=== PATIENT | male | born 1955 | race Caucasian/White ===

== ENCOUNTER 2021-05-27 07:01 | Emergency (ER) | payer BC, OTHER ==
[~2021-05-27] VITALS: Ht 187 cm; Wt 105.0 kg
[2021-05-27] MEDS ORDERED: ASPIRIN 81 MG CHEW (CHILDREN'S ASA) PO ONE (07:30)
[2021-05-27] MEDS ORDERED: DIAZEPAM 5 MG (VALIUM) TABLET PO ONE (07:30)
[2021-05-27] MEDS ORDERED: KETOROLAC 30 MG/ML VIAL IVP ONE (07:30)
[2021-05-27 07:40] LABS: HEMATOCRIT 47 % (40-54); HEMOGLOBIN 16.4 g/dL (13.3-17.7); LYMPHOCYTES % (AUTO) 31 % (12-44); MEAN CORPUSCULAR HEMOGLOBIN 32 pg (25-34); MEAN CORPUSCULAR HGB CONC 35 g/dL (32-36); MEAN CORPUSCULAR VOLUME 92 fL (80-99); MEAN PLATELET VOLUME 9.7 fL (9.0-12.2); MONOCYTES % (AUTO) 10 % (0-12); NEUTROPHILS % (AUTO) 55 % (42-75); PLATELET COUNT 230 10^3/uL (130-400); WHITE BLOOD COUNT 6.6 10^3/uL (4.3-11.0)
[2021-05-27 07:41] LABS: BASOPHILS % (AUTO) 1 % (0-10); EOSINOPHILS # (AUTO) 0.3 10^3/uL (0.0-0.3); EOSINOPHILS % (AUTO) 4 % (0-10); MONOCYTES # (AUTO) 0.6 X 10^3 (0.0-1.0); NEUTROPHILS # (AUTO) 3.6 X 10^3 (1.8-7.8)
[2021-05-27 08:05] LABS: ALANINE AMINOTRANSFERASE 62 U/L (0-55); ALKALINE PHOSPHATASE 96 U/L (40-136); BILIRUBIN,TOTAL 0.5 MG/DL (0.1-1.0); BUN/CREATININE RATIO 19; CALCIUM 9.4 MG/DL (8.5-10.1); CARBON DIOXIDE 28 MMOL/L (21-32); CHLORIDE 103 MMOL/L (98-107); CREATININE SERUM 1.06 MG/DL (0.60-1.30); GFR ESTIMATED 71; GLUCOSE 160 MG/DL (70-105); SODIUM 142 MMOL/L (135-145); TOTAL PROTEIN 9.6 GM/DL (6.4-8.2)
[2021-05-27 08:06] VITALS: BP 136/84
[2021-05-27 08:06] LABS: ALBUMIN 4.4 GM/DL (3.2-4.5)
--- NOTE | 2021-05-27 08:19 | Diagnostic Imaging Report ---
Indication: Back pain COMPARISON: CT of the spine from same date TECHNIQUE: Single frontal radiograph of the chest dated 05/27/2021 FINDINGS: Prominence of the right aspect of the superior aspect of the heart border. Otherwise, the cardiac silhouette is within normal limits in size. No significant pulmonary vascular congestion. A 1.1 cm nodular density seen overlying the left lung base. The lungs otherwise appear clear. No pleural effusion. No pneumothorax. No acute osseous abnormality. IMPRESSION: 1.1 cm nodular density overlying the left lung base. It is favored this simply relates to a nipple shadow, though pulmonary nodule is not excluded. Recommend repeat frontal and lateral radiograph the chest with nipple markers in place. Alternatively, this could be further evaluated with a CT of the chest to also further evaluate the suspected ascending thoracic aortic aneurysm. Prominence of the superior aspect of the right heart border. This is favored related to aneurysm versus tortuosity of the ascending thoracic aorta. This can be further evaluated with chest CT. Dictated by: Dictated on workstation # [id number]
--- NOTE | 2021-05-27 08:22 | Diagnostic Imaging Report ---
EXAMINATION: CT cervical and thoracic spine without contrast. TECHNIQUE: Multiple contiguous axial images were obtained through the cervical and thoracic spine without the use of intravenous contrast. Sagittal and coronal reformations through the cervical spine were then performed. All CT scans use one or more of the following dose optimizing techniques: automated exposure control, MA and/or KvP adjustment based on patient size and exam type or iterative reconstruction. HISTORY: L paraspinal pain shooting down L arm COMPARISON: None available. FINDINGS: Vertebral body height and alignment are preserved. No acute fracture, dislocation, or destructive osseous process. Mild multilevel facet hypertrophy without perched facets. No greater than mild central canal stenosis at any level. Moderate to severe foraminal stenosis right C5-C6. Additional levels of mild to moderate foraminal stenosis. The paraspinous soft tissues are normal. The visualized thyroid gland is normal. The visualized lungs are normal. IMPRESSION: 1. Degenerative changes of the cervical and thoracic spine without acute osseous abnormality. 2. Up to moderate to severe foraminal stenosis right C5-C6. Dictated by: Dictated on workstation # [id number]
--- NOTE | 2021-05-27 08:32 | ED General ---
General Chief Complaint: Back Problems Stated Complaint: BACK PAIN Nursing Triage Note: Patient has presented to ER with cc of upper left sdie back pain. He reports that for the last 3 days, he has had pain between his left shoulder blade and his spine, he is uaware of any trauma or known injury. Patient reports that ibuprofen makes the pain better, resting his arm agains his torso makes the pain almost go away. Working and driving yesterday made the pain worse. He has not seen his doctor and came to ER for evaluation. History of Present Illness Date Seen by Provider: May 27, 2021 Time Seen by Provider: 08:32 Initial Comments Patient presented to the emergency department for evaluation of left scapular pain in addition to left neck and arm pain that started 3 days ago and has persisted. Patient says that he has a constant dull ache but at times he has burning sharp pain shooting down his left arm that can make his left hand numb intermittently. He says yesterday he felt that the burning sensation was going into his chest. He denies any symptoms of dyspnea on exertion dyspnea at rest nausea vomiting diaphoresis or weakness in his left arm. Patient denies any saddle anesthesia bowel or bladder incontinence. Patient says that the pain can get worse with certain positions of his left arm. He denies any exertional symptoms. He does have a history of diabetes hypertension high cholesterol and he says his last cardiac or stratification was 10 years ago with a heart catheterization that required no stents. He says when he takes ibuprofen the pain goes away for 3 hours but then it comes back. He is in no acute distress with normal vital signs. Allergies and Home Medications Allergies Coded Allergies: No Known Drug Allergies (Unverified , 05/27/21) Patient Home Medication List Home Medication List Reviewed: Yes Ibuprofen (Ibuprofen) 600 Mg Tablet, 600 MG PO Q6H PRN for PAIN-MILD Prescribed by: YARELIS MANUEL on 05/27/2146 Ondansetron (Ondansetron Odt) 4 Mg Tab.rapdis, 4 MG PO Q6H Prescribed by: YARELIS MANUEL on 05/27/21845 Oxycodone HCl/Acetaminophen (Percocet 5-325 mg Tablet) 1 Each Tablet, 1 TAB PO Q4H Prescribed by: YARELIS AMNUEL on 05/27/21845 Review of Systems Review of Systems Constitutional: no symptoms reported EENTM: no symptoms reported Respiratory: no symptoms reported Cardiovascular: chest pain Gastrointestinal: no symptoms reported Genitourinary: no symptoms reported Musculoskeletal: back pain Skin: no symptoms reported Psychiatric/Neurological: Numbness All Other Systems Reviewed Negative Unless Noted: Yes Past Smyxtij-Syxzmk-Rrnxjs Hx Patient Social History Tobacco Use?: No Smoking Status: Never a Smoker Smokeless Tobacco Frequency: Never a User Use of E-Cig and/or Vaping dev: No Use of E-Cig and/or Vaping Fran: Never a User Substance use?: No Alcohol Use?: Yes Alcohol type: Beer Alcohol Frequency: Once in a while Pt feels they are or have been: No Physical Exam Vital Signs Vital Signs - First Documented 05/27/21 08:06 Temp 35.9 Pulse 59 Resp 16 B/P (MAP) 136/84 (101) Pulse Ox 95 O2 Delivery Room Air Capillary Refill : Height, Weight, BMI Height: '" Weight: lbs. oz. kg; 30.00 BMI Method: General Appearance: No Apparent Distress, WD/WN HEENT: PERRL/EOMI Neck: Full Range of Motion, Normal Inspection, Supple Respiratory: Lungs Clear, No Respiratory Distress Cardiovascular: Regular Rate, Rhythm, No Edema Back: Normal Inspection, Other (Left scapular region with mild tenderness to palpation) Extremity: Normal Capillary Refill Neurologic/Psychiatric: Alert, Oriented x3, No Motor/Sensory Deficits (5 out of 5 strength in bilateral handgrip and wrist and elbow flexion extension) Skin: Normal Color, Warm/Dry Progress/Results/Core Measures Suspected Sepsis SIRS Temperature: Pulse: 59 Respiratory Rate: 16 Laboratory Tests 05/27/21 07:33: White Blood Count 6.6 Blood Pressure 136 /84 Mean: 101 Laboratory Tests 05/27/21 07:33: Creatinine 1.06, Platelet Count 230, Total Bilirubin 0.5 Results/Orders Lab Results Laboratory Tests Test 05/27/21 07:33 Range/Units White Blood Count 6.6 4.3-11.0 10^3/uL Red Blood Count 5.08 4.30-5.52 10^6/uL Hemoglobin 16.4 13.3-17.7 g/dL Hematocrit 47 40-54 % Mean Corpuscular Volume 92 80-99 fL Mean Corpuscular Hemoglobin 32 25-34 pg Mean Corpuscular Hemoglobin Concent 35 32-36 g/dL Red Cell Distribution Width 12.4 10.0-14.5 % Platelet Count 230 130-400 10^3/uL Mean Platelet Volume 9.7 9.0-12.2 fL Immature Granulocyte % (Auto) 0 % Neutrophils (%) (Auto) 55 42-75 % Lymphocytes (%) (Auto) 31 12-44 % Monocytes (%) (Auto) 10 0-12 % Eosinophils (%) (Auto) 4 0-10 % Basophils (%) (Auto) 1 0-10 % Neutrophils # (Auto) 3.6 1.8-7.8 X 10^3 Lymphocytes # (Auto) 2.0 1.0-4.0 X 10^3 Monocytes # (Auto) 0.6 0.0-1.0 X 10^3 Eosinophils # (Auto) 0.3 0.0-0.3 10^3/uL Basophils # (Auto) 0.0 0.0-0.1 10^3/uL Immature Granulocyte # (Auto) 0.0 0.0-0.1 10^3/uL Sodium Level 142 135-145 MMOL/L Potassium Level 4.0 3.6-5.0 MMOL/L Chloride Level 103 98-107 MMOL/L Carbon Dioxide Level 28 21-32 MMOL/L Anion Gap 11 5-14 MMOL/L Blood Urea Nitrogen 20 H 7-18 MG/DL Creatinine 1.06 0.60-1.30 MG/DL Estimat Glomerular Filtration Rate 71 BUN/Creatinine Ratio 19 Glucose Level 160 H 70-105 MG/DL Calcium Level 9.4 8.5-10.1 MG/DL Corrected Calcium 9.1 8.5-10.1 MG/DL Total Bilirubin 0.5 0.1-1.0 MG/DL Aspartate Amino Transf (AST/SGOT) 36 H 5-34 U/L Alanine Aminotransferase (ALT/SGPT) 62 H 0-55 U/L Alkaline Phosphatase 96 40-136 U/L Troponin I < 0.30 <0.30 NG/ML Total Protein 9.6 H 6.4-8.2 GM/DL Albumin 4.4 3.2-4.5 GM/DL My Orders Orders - YARELIS MANUEL DO Ekg Tracing (05/27/21 07:29) Cbc With Automated Diff (05/27/21 07:29) Comprehensive Metabolic Panel (05/27/21 07:29) Troponin I Fs (05/27/21 07:29) Chest 1 View Ap/Pa Only (05/27/21 07:29) Ct Cervical/Thoracic Spine Wo (05/27/21 07:29) Aspirin Chewable Tablet (Baby Aspirin Ch (05/27/21 07:30) Ketorolac Injection (Toradol Injection) (05/27/21 07:30) Diazepam Tablet (Valium Tablet) (05/27/21 07:30) Dexamethasone Injection (Decadron Injec (05/27/21 08:00) Medications Given in ED Current Medications Medications Dose Ordered Sig/Stefan Route Start Time Stop Time Status Last Admin Dose Admin Aspirin 324 mg ONCE ONCE PO 05/27/21 07:30 05/27/21 07:34 DC 05/27/21 07:41 324 MG Dexamethasone Sodium Phosphate 6 mg ONCE ONCE IV 05/27/21 08:00 05/27/21 08:01 DC 05/27/21 07:58 6 MG Diazepam 5 mg ONCE ONCE PO 05/27/21 07:30 05/27/21 07:34 DC 05/27/21 07:41 5 MG Ketorolac Tromethamine 15 mg ONCE ONCE IVP 05/27/21 07:30 05/27/21 07:34 DC 05/27/21 07:41 15 MG Vital Signs/I&O 05/27/21 08:06 Temp 35.9 Pulse 59 Resp 16 B/P (MAP) 136/84 (101) Pulse Ox 95 O2 Delivery Room Air Capillary Refill : Blood Pressure Mean: 101 Progress Note : Progress Note Patient symptoms are most consistent with a cervical radiculopathy but given his risk factors for coronary disease I did do an EKG and troponin that were 6 hours greater than the onset of symptoms. Patient does have an elevated heart score of 4 based off risk factors and age but using shared decision making and the fact that his symptoms are very atypical the decision was made for him to go home and follow-up as an outpatient. I told him I cannot completely exclude coronary disease in the emergency department but there is no signs of acute coronary syndrome on EKG or troponin. His pain has resolved in the emergency department with treatment here. I will prescribe him supportive medications and outpatient for cervical radiculopathy. No red flag signs or symptoms present to necessitate transfer for an MRI. I did tell him that he would benefit from getting an outpatient MRI. I discussed all incidental findings including the potential pulmonary nodule and the need for follow-up. Patient was told that his blood sugar would go up with the Decadron given here and that they would need to be monitored. Patient aware and agreeable with plan for discharge and verbalized understanding of the need for short-term follow-up with the next 3 to 4 days with his primary care provider and come back to emergency department sooner with worsening pain neurologic changes or other general concerns. Patient aware and agreeable with plan and verbalized understanding of the above instructions. Departure Impression Primary Impression: Cervical radiculopathy Additional Impression: Pain of left scapula Disposition: HOME, SELF-CARE Condition: Stable Departure-Patient Inst. Referrals: NO,LOCAL PHYSICIAN (PCP/Family) Primary Care Physician Patient Instructions: Radiculopathy (DC) Scripts Ondansetron (Ondansetron Odt) 4 Mg Tab.rapdis 4 MG PO Q6H, #14 TAB Prov: YARELIS MANUEL DO 05/27/21 Oxycodone HCl/Acetaminophen (Percocet 5-325 mg Tablet) 1 Each Tablet 1 TAB PO Q4H for PAIN-MODERATE MDD 6 TABS for 3 Days, #14 TAB Prov: YARELIS MANUEL DO 05/27/21 Ibuprofen (Ibuprofen) 600 Mg Tablet 600 MG PO Q6H PRN for PAIN-MILD for 7 Days, TAB Prov: YARELIS MANUEL DO 05/27/21 YARELIS MANUEL DO May 27, 2021 08:32
[2021-05-27] MEDS ORDERED: ONDA4TAB11 PO (08:46)
[2021-05-27] MEDS ORDERED: OXYC1TAB87 PO (08:46)
[2021-05-27] MEDS ORDERED: IBUP-1773 PO (08:46)
== END 2021-05-27 09:02 | disposition home or self-care (01) ==
LOC: ER FS 07:04
DX: M54.12 Radiculopathy, cervical region (principal); I10 Essential (primary) hypertension; E11.9 Type 2 diabetes mellitus without complications
CPT/HCPCS: 36415; 71045; 72125; 72128; 80053; 84484; 85025; 93005